=== PATIENT | female | born 1990 ===

== ENCOUNTER 2016-10-29 09:22 | Day surgery (SDC) | payer BC, OTHER ==
[2016-10-27 12:15] VITALS: BMI 25.7
[2016-10-29 10:19] LABS: BASO % 0.4 % (0.0-2.0); EOS % 0.7 % (0.0-4.0); HEMATOCRIT 38.1 % (34.0-47.0); LYMPH # 1.6 K/uL (1.0-4.3); LYMPH % 21.8 % (20.0-40.0); MEAN CELL VOLUME 93.7 fl (81.0-99.0); MEAN CORPUSCULAR HEMOGLOBIN 30.8 pg (27.0-31.0); MEAN CORPUSCULAR HGB CONC 32.8 g/dL (33.0-37.0); MONO # 0.4 K/uL (0.0-0.8); MONO % 4.8 % (0.0-10.0); NEUT # 5.2 K/uL (1.8-7.0); NEUT % 72.3 % (50.0-75.0); WHITE BLOOD COUNT 7.2 K/uL (4.8-10.8)
[2016-10-29] MEDS ORDERED: Lactated Ringer's 1,000 ML IV ONE (12:07)
[2016-10-29] MEDS ORDERED: Ferric Subsulfate Sol(60 mL) ONE (12:27)
[2016-10-29] MEDS ORDERED: Midazolam 2 MG/2 ML VIAL ONE (12:44)
[2016-10-29] MEDS ORDERED: Propofol 10 mg/ml Inj (20 ML) ONE (12:44)
[2016-10-29] MEDS ORDERED: Ferric Subsulfate Sol(60 mL) TP ONE (13:15)
--- NOTE | 2016-10-29 14:35 | HP ---
HISTORY OF PRESENT ILLNESS: The patient is a 26-year-old G0, last menstrual period was 10/07/2016, who is being admitted for operative hysteroscopy due to breakthrough bleeding since the end of June 2016 that she has been having on the pill, Mononessa. She reports that she has not had breakthrough bleeding in the past with this OCP. The patient does report that she took a different form of her pill for the month of June and may be why she is having this breakthrough bleeding. The patient does report that, overall, she feels the breakthrough bleeding has improved recently; however, she still wants to proceed with the hysteroscopy given there was a finding on the ultrasound. PAST MEDICAL HISTORY: Healthy. PAST SURGICAL HISTORY: None. CURRENT MEDICATIONS: Mononessa. 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 She denies smoking. She denies illicit drug use and reports that she drinks about few drinks monthly or less. PAST GYNECOLOGIC HISTORY: She denies any abnormal PAP. She denies any STD. She reports that she does get monthly periods. She is currently on Mononessa. ALLERGIES: Aspirin, raspberries. FAMILY HISTORY: Noncontributory. PHYSICAL EXAMINATION VITAL SIGNS: Afebrile, vital signs are stable. GENERAL: The patient is comfortable lying in bed. ABDOMEN: Soft, nontender. EXTREMITIES: Nontender. On 09/03/2016, her vaginal exam had brown red blood in the vault and her LMP at that time was on 08/19/2016. IMAGING: Ultrasound was done on 09/17/2016. The uterus is normal in size measuring 8.5 x 5 x 3.6 cm. The endometrium measures 6 mm. There is a hyperechoic mass measuring 1.2 x 1 x 0.8 cm identified within the endometrium adjacent to the cervix. This mass has a thin calcified periphery. A small amount of fluid was identified within the cervix. Bilateral follicular cysts. ASSESSMENT AND PLAN: This is a 26-year-old G0 with increased breakthrough bleeding, on Mononessa over the last few months, who was found to have a hypoechoic mass with thin calcified periphery identified within the endometrium adjacent to the cervix by ultrasound, who is scheduled to have an operative hysteroscopy today. Pt reports that breakthrough bleeding has improved and was asked if she still wanted to proceed with the procedure. Patient reports that she would still like to proceed with the hysteroscopy. Consents signed. Claudia Hughes MD MTDD
[2016-10-29] MEDS ORDERED: HYDROmorphone 0.5 mg/0.5 ml ISec IVP PRN (14:44)
[2016-10-29] MEDS ORDERED: Lactated Ringer's 1,000 ML IV SCH (14:48)
[2016-10-29 15:49] VITALS: RESP 18
[2016-10-29 17:09] VITALS: BP 124/77; PULSE 71; TEMP 98.6; O2SAT 98
--- NOTE | 2016-10-29 19:56 | OP ---
PROCEDURE DATE: 10/29/2016 PREOPERATIVE DIAGNOSIS: This is a 26-year-old 0 with breakthrough bleeding on oral contraceptive pills with a 1.2 cm lesion seen in the endometrium by ultrasound. POSTOPERATIVE DIAGNOSIS: Normal-appearing endometrial cavity. PROCEDURES: Cervical dilation, diagnostic hysteroscopy. SURGEON: Claudia Hughes MD ANESTHESIA ADMINISTERED BY: Dr. Ad Cheatham. TYPE OF ANESTHESIA: General anesthesia with LMA. DEFICIT: 140 mL. FINDINGS: A normal anteverted uterus with a normal-appearing endometrial cavity, both ostia were seen. DESCRIPTION OF PROCEDURE: The patient was taken to the operating room with IV running. She was placed under general anesthesia with LMA. She was then prepped and draped in the usual sterile fashion in the dorsal lithotomy position. Initially, her bladder was emptied of clear urine with a red rubber catheter. A weighted speculum was then placed in the posterior fornix of the vagina and the same speculum was placed against the anterior wall of the vagina. A single-tooth tenaculum was placed at the anterior lip of the cervix. The cervix was then gently dilated to 20 to accommodate the MyoSure scope. The MyoSure scope was then placed through the cervix into the uterus with the findings as noted above. The MyoSure scope was then removed. The tenaculum was removed. Pressure was applied to the tenaculum sites followed by [facility] for further hemostasis. All instruments were removed from the vagina and the counts were correct. The patient was awakened and taken to the recovery room in stable condition. Claudia Hughes MD [facility] CENTERNoemy
== END 2016-10-29 17:37 | disposition home or self-care (01) ==
LOC: H.OPSURG 09:22
PROVIDERS: ATTEND Obstetrics & Gynecology
DX: N92.1 Excessive and frequent menstruation with irregular cycle (principal)
CPT/HCPCS: 36415; 58558; 85025; J1170; J2001; J2250; J2405; J2704; J3010; J7030; J7120